=== PATIENT | male | born 1995 | race Two or more races ===

== ENCOUNTER 2022-01-03 18:34 | Emergency (ER) | payer SELFPAY ==
[~2022-01-03] VITALS: Ht 172.7 cm; Wt 122.5 kg
[2022-01-03 18:39] VITALS: BP 144/89
[2022-01-03 21:22] LABS: Urine Bacteria NONE SEEN /hpf (None Seen); Urine Blood 3+ /uL (Negative); Urine Mucus FEW (None Seen); Urine Specific Gravity 1.038 (1.001-1.035); Urine WBC <1 /hpf (0 - 3)
== END 2022-01-04 | disposition home or self-care (01) ==
LOC: ER 18:34
DX: N43.3 Hydrocele, unspecified (principal)
CPT/HCPCS: 76870; 81001